=== PATIENT | female | born 1995 | race African-American/Black ===

== ENCOUNTER 2016-09-13 23:59 | Emergency (ER) | payer OTHER ==
[~2016-09-13 23:59] MED LIST: BENZONATATE PO; ROBITUSSIN A-C S5 ML PO; ZITHROMAX PO
== END 2016-09-14 00:30 | disposition left against medical advice (07) ==
LOC: CED 23:59
DX: Z53.21 Procedure and treatment not carried out due to patient leaving prior to being seen by health care provider (principal)